=== PATIENT | female | born 1980 | race Asian ===

== ENCOUNTER 2017-07-18 05:00 | Inpatient (IN) | payer SELFPAY ==
[~2017-07-18] VITALS: Ht 165.1 cm; Wt 72.6 kg
[~2017-07-18 05:00] MED LIST: CEFAZOLIN 2 GM IVPB PREMIX 50 ML IV ONE; CITRIC ACID/SODIUM CITRATE 30 ML UDC ONE
[2017-07-18] MEDS ORDERED: LR 1,000 ML IV SCH ×3 (05:10→08:28)
[2017-07-18] MEDS ORDERED: CEFAZOLIN 2 GM IVPB PREMIX 50 ML IV ONE (05:15)
[2017-07-18] MEDS ORDERED: CITRIC ACID/SODIUM CITRATE 30 ML UDC PO ONE (05:45)
[2017-07-18 06:16] LABS: BASOPHILS % (AUTO) 0.7 % (0.0-2.0); EOSINOPHILS % (AUTO) 0.5 % (0.0-4.0); HEMATOCRIT 32.1 % (36-48); HEMOGLOBIN 10.5 g/dL (12.0-16.0); LYMPHOCYTES # (AUTO) 0.9 K/uL (1.0-5.5); LYMPHOCYTES % (AUTO) 15.1 % (20.5-51.5); MEAN CORPUSCULAR HEMOGLOBIN 32 pg (27-31); MEAN CORPUSCULAR HGB CONC 33 % (32-36); MEAN CORPUSCULAR VOLUME 97 fL (79.0-98.0); MONOCYTES # (AUTO) 0.6 K/uL (0.0-1.0); MONOCYTES % (AUTO) 9.6 % (1.7-9.3); NEUTROPHILS # (AUTO) 4.6 K/uL (1.8-7.7); NEUTROPHILS % (AUTO) 74.1 % (40.0-70.0); PLATELET COUNT (AUTO) 158 K/uL (130-430); RED BLOOD CELL COUNT(AUTO) 3.32 MIL/uL (4.2-6.2); RED CELL DISTRIBUTION WIDTH 12.8 % (9.0-15.0); WHITE BLOOD COUNT (AUTO) 6.1 K/uL (4.8-10.8)
[2017-07-18 06:47] VITALS: BP_SYST 107
[2017-07-18] MEDS ORDERED: FLU VACC QS 2017-18(36MOS+)/PF 0.5 ML/SYR SYRINGE I.M. PRN (07:00)
[2017-07-18] MEDS ORDERED: LR 1,000 ML IV.SOLN IV ONE (07:06)
[2017-07-18] MEDS ORDERED: OXYTOCIN 10 UNIT/ML VIAL IV ONE (07:06)
[2017-07-18] MEDS ORDERED: METHYLERGONOVINE MALEATE 0.2 MG/ML AMP IM ONE (07:06)
[2017-07-18] MEDS ORDERED: MORPHINE SULFATE 10MG/10ML PF AMP EP ONE (07:06)
[2017-07-18] MEDS ORDERED: NS IRRIG SOLN 1000 ML IR ONE (07:06)
[2017-07-18] MEDS ORDERED: BUPIVACAINE /PF 0.75% 10 ML VIAL INJ ONE (07:06)
[2017-07-18] MEDS ORDERED: ONDANSETRON HCL 4 MG/2 ML VIAL IVP PRN ×2 (08:00)
[2017-07-18] MEDS ORDERED: NALBUPHINE HCL 10 MG/ML AMP IVP PRN (08:00)
[2017-07-18] MEDS ORDERED: HYDROmorphone 1 MG INJ. 1 MG/ML AMPUL IVP PRN ×2 (08:00)
[2017-07-18] MEDS ORDERED: ePHEDrine sulfate 50 MG/ML VIAL IVP PRN (08:00)
[2017-07-18] MEDS ORDERED: MEPERIDINE HCL/PF 25 MG/ML DISP.SYRIN IVP PRN ×2 (08:00)
[2017-07-18] MEDS ORDERED: DIPHENHYDRAMINE INJ 50 MG/ML VIAL IVP PRN (08:00)
[2017-07-18] MEDS ORDERED: MORPHINE SULFATE 10MG/10ML PF AMP SP SCH (08:00)
[2017-07-18] MEDS ORDERED: NALOXONE HCL 0.4 MG/ML AMP (NARCAN) IVP PRN (08:00)
[2017-07-18] MEDS ORDERED: KETOROLAC TROMETHAMINE 30 MG VIAL IVP PRN ×2 (08:00)
[2017-07-18] MEDS ORDERED: HYDROmorphone 2 MG/ML VIAL IVP PRN ×2 (08:00)
[2017-07-18 08:25] VITALS: BP_SYST 101
[2017-07-18] MEDS ORDERED: OXYTOCIN/NORMAL SALINE 1,000 ML IV ONE (08:28)
[2017-07-18] MEDS ORDERED: HYDROcodone/ACETAMIN 5-325 MG TAB (NORCO/ VICODIN) PO PRN ×2 (08:30)
[2017-07-18] MEDS ORDERED: ACETAMINOPHEN 325 MG TABLET PO PRN (08:30)
[2017-07-18] MEDS ORDERED: SIMETHICONE 80 MG TAB.CHEW PO PRN (08:30)
[2017-07-18] MEDS ORDERED: TEMAZEPAM 15 MG CAPSULE PO PRN (08:30)
[2017-07-18] MEDS ORDERED: BISACODYL 10 MG/SUPPOSITORY RC PRN (08:30)
[2017-07-18] MEDS ORDERED: LANOLIN 7 GM OINT. TP PRN (08:30)
[2017-07-18] MEDS ORDERED: ANUSOL 1 EA SUPP.RECT (PREPARATION H) RC PRN (08:30)
[2017-07-18] MEDS ORDERED: MEASLES,MUMPS&RUBELLA VACC/PF 12500 UNIT/0.5 ML VIAL SUBQ PRN (08:30)
[2017-07-18] MEDS ORDERED: SENNOSIDES/DOCUSATE SODIUM 1 TAB TABLET(SENOKOT-S) PO PRN (08:30)
[2017-07-18] MEDS ORDERED: RHO(D) IMMUNE GLOBULIN/MALTOSE 1500 UNITS/1.3 ML (WINHRO) IM PRN (08:30)
[2017-07-18] MEDS: IBUPROFEN 600 MG TABLET PO SCH (23:42)
[2017-07-18] MEDS: DOCUSATE SODIUM 100 MG CAPSULE PO PRN (23:42)
[2017-07-19] MEDS: IBUPROFEN 600 MG TABLET PO SCH ×4 (05:03→18:16)
[2017-07-19 06:46] LABS: BASOPHILS % (AUTO) 0.4 % (0.0-2.0); EOSINOPHILS % (AUTO) 0.8 % (0.0-4.0); HEMATOCRIT 28.3 % (36-48); HEMOGLOBIN 9.5 g/dL (12.0-16.0); LYMPHOCYTES # (AUTO) 1.2 K/uL (1.0-5.5); LYMPHOCYTES % (AUTO) 19.6 % (20.5-51.5); MEAN CORPUSCULAR HEMOGLOBIN 32 pg (27-31); MEAN CORPUSCULAR HGB CONC 34 % (32-36); MEAN CORPUSCULAR VOLUME 96 fL (79.0-98.0); MONOCYTES # (AUTO) 0.5 K/uL (0.0-1.0); MONOCYTES % (AUTO) 7.5 % (1.7-9.3); NEUTROPHILS # (AUTO) 4.4 K/uL (1.8-7.7); NEUTROPHILS % (AUTO) 71.7 % (40.0-70.0); PLATELET COUNT (AUTO) 134 K/uL (130-430); RED BLOOD CELL COUNT(AUTO) 2.95 MIL/uL (4.2-6.2); RED CELL DISTRIBUTION WIDTH 13.1 % (9.0-15.0); WHITE BLOOD COUNT (AUTO) 6.1 K/uL (4.8-10.8)
[2017-07-20] MEDS: IBUPROFEN 600 MG TABLET PO SCH ×5 (00:11→23:41)
[2017-07-20] MEDS ORDERED: DIPH-TET-PERTUS Vaccine 0.5 ML VIAL/Tdap (ADACEL) I.M. PRN (12:00)
[2017-07-20] MEDS ORDERED: BISACODYL 10 MG/SUPPOSITORY RC PRN (13:30)
[2017-07-20] MEDS: DOCUSATE SODIUM 100 MG CAPSULE PO PRN (23:41)
[2017-07-21] MEDS: IBUPROFEN 600 MG TABLET PO SCH ×2 (06:06→12:54)
== END 2017-07-21 14:43 | disposition home or self-care (01) | DRG 766 ==
LOC: SPU 05:00
PROVIDERS: ADMIT Obstetrics & Gynecology; ATTEND Obstetrics & Gynecology
PROC: 3E0134Z Introduction of Serum, Toxoid and Vaccine into Subcutaneous Tissue, Percutaneous Approach (ICD-10-PCS; 2017-07-18)
PROC: 10D00Z1 Extraction of Products of Conception, Low, Open Approach (ICD-10-PCS; principal; 2017-07-18 07:30)
DX: O34.211 Maternal care for low transverse scar from previous cesarean delivery (principal); O09.523 Supervision of elderly multigravida, third trimester; Z37.0 Single live birth; Z23 Encounter for immunization
CPT/HCPCS: 36415; 85025; 86592; 86886; 86900; 86901; 90715; 94760; J0690; J2210; J2274; J2590; J3490; J7120; Q2037